=== PATIENT | male | born 1955 | race Caucasian/White ===

== ENCOUNTER → 2018-01-19 | Outpatient (CLI) | payer OTHER | END | disposition home or self-care (01) | LOC: RADXRMAIN 09:19 | PROVIDERS: ATTEND Podiatrist | DX: Z53.9 Procedure and treatment not carried out, unspecified reason (principal) ==

== ENCOUNTER 2018-06-28 09:41 | Day surgery (SDC) | payer BC, OTHER ==
[2018-06-25 16:03] VITALS: BMI 34.0
[~2018-06-28 09:41] MED LIST: LACTATED RINGERS 1,000 ML IV SCH; LIDOCAINE 1% 20 ML VIAL (10MG/ML) FOR IV START INTRADERMA PRN
[2018-06-28 10:05] VITALS: RESP 16; TEMP 96.9
[2018-06-28] MEDS ORDERED: PROPOFOL 10 MG/ML 20 ML VIAL IV ONE (10:09)
[2018-06-28] MEDS ORDERED: GLYCOPYRROLATE 0.2 MG/ML 2 ML VIAL ONE (10:09)
[2018-06-28] MEDS ORDERED: LIDOCAINE 1% INJ 10MG/ML (20 ML MDV) ONE (10:09)
[2018-06-28 10:34] VITALS: PULSE 70
--- NOTE | 2018-06-28 11:15 | P.PCN ---
Date of Procedure: 06/28/18 Procedure(s) Performed: Procedure: Total colonoscopy. Preoperative diagnosis: Rectal bleeding. Postoperative diagnosis: 1. Sigmoid diverticulosis with no evidence of acute diverticulitis or strictures. 2. Low-grade internal hemorrhoids not bleeding at the time of this exam. Preparation: HalfLytely prep. Sedation: Was provided by anesthesia. Brief clinical history: The patient is 63-year-old male who is scheduled for this evaluation because of intermittent rectal bleeding which he has been experiencing over the last 2 years or so, perhaps once or twice a month. He denied any bowel issues or rectal pain. His prior evaluation was in 2009. Procedure: With the patient on his left lateral decubitus position and after informed consent and adequate sedation, the perianal area was inspected and it did not show any fissures or fistulas. There were no masses felt on digital rectal examination. The Olympus CFH 190L video colonoscope was then inserted in the rectum in the usual fashion and advanced to the cecum. There were several diverticular orifices seen scattered in the sigmoid with no evidence of acute diverticulitis or strictures. The mucosa appeared healthy. No polyps or tumors were seen. I retroflexed the endoscope in the rectum before the endoscope was withdrawn. Low-grade internal hemorrhoids were noted with no evidence of bleeding. The patient tolerated the procedure well. Plan: The patient was reassured. Discussed dietary measures and local care for hemorrhoids. He will follow up with you as planned and I recommended repeat exam in 10 years.
[2018-06-28 11:16] VITALS: BP 115/83
== END 2018-06-28 11:41 | disposition home or self-care (01) ==
LOC: ORWHC2ENDO 09:41
DX: K57.30 Diverticulosis of large intestine without perforation or abscess without bleeding (principal); K64.8 Other hemorrhoids; K62.5 Hemorrhage of anus and rectum; Z87.891 Personal history of nicotine dependence; G89.29 Other chronic pain; M54.9 Dorsalgia, unspecified; Z79.1 Long term (current) use of non-steroidal anti-inflammatories (NSAID)
CPT/HCPCS: 45378; J2001; J2704

== ENCOUNTER 2018-12-27 12:08 | Emergency (ER) | payer BC ==
[2018-12-27 12:12] VITALS: TEMP 98.2
[2018-12-27] MEDS ORDERED: methylPREDNISolone SOD SUCCI 125 MG/2 ML VIAL IV STA (12:14)
[2018-12-27] MEDS ORDERED: diphenhydrAMINE 50 MG/ML 1 ML VIAL IVP STA (12:14)
[2018-12-27] MEDS ORDERED: FAMOTIDINE 20 MG/2 ML VIAL IV STA (12:14)
[2018-12-27 13:10] VITALS: BP 135/90; PULSE 70; RESP 18
--- NOTE | 2018-12-27 13:26 | ED ---
Allergic Reaction HPI - General Chief complaint: Allergic Reaction Stated complaint: allergic reaction Time Seen by Provider: 12/27/18 12:14 Source: patient Mode of arrival: ambulatory Limitations: no limitations - History of Present Illness Initial Comments: 63-year-old male presented for chief complaint of possible ALLERGIC reaction. Patient states that he has had hives on audible past 2 months. Patient states that the develop on his back first. Patient states that he developed hives mostly on his back to his legs by the morning. He states they're very itchy. Patient states they're slightly raised red and 8 irregular pattern. Patient states that he also developed lip swelling this morning and was concerned per patient states he felt a scratchy throat was concerned ALLERGIC reaction presents emergency department for further evaluation. Patient denies any new medications. Patient denies any new exposures. Patient denies any ALLERGIES to pollen. Patient denies any insect bites. Patient states he takes no medications he denies any use of Ethan inhibitors. Patient states that he takes occasional Advil. Patient denies any specific food ingestion such as peanuts or shortness. Patient denies any specific changes in diet. Patient states he is unsure the cause of this ALLERGIC reaction. Denies abdominal pain diarrhea. Remaining review of systems negative. - Related Data Home Medications Medication Instructions Recorded Confirmed Ibuprofen [Advil] 200 mg PO Q6HR PRN 06/25/18 06/28/18 Previous Rx's Medication Instructions Recorded predniSONE 40 mg PO DAILY 4 Days #8 tab 12/27/18 Allergies Allergy/AdvReac Type Severity Reaction Status Date / Time No Known Allergies Allergy Verified 12/27/18 12:11 Review of Systems ROS Statement: Those systems with pertinent positive or pertinent negative responses have been documented in the HPI. ROS Other: All systems not noted in ROS Statement are negative. Past Medical History Past Medical History: No Reported History Additional Past Medical History / Comment(s): CHRONIC BACK PAIN. History of Any Multi-Drug Resistant Organisms: None Reported Past Surgical History: Back Surgery Additional Past Surgical History / Comment(s): NECK SURGERY X2 Past Anesthesia/Blood Transfusion Reactions: No Reported Reaction Past Psychological History: No Psychological Hx Reported Smoking Status: Former smoker Past Alcohol Use History: None Reported Past Drug Use History: None Reported - Past Family History Mother Family Medical History: No Reported History General Exam - General Exam Comments Initial Comments: General: The patient is awake and alert, in no distress, and does not appear acutely ill. Eye: Pupils are equal, round and reactive to light, extra-ocular movements are intact. No nystagmus. There is normal conjunctiva bilaterally. No signs of icterus. Ears, nose, mouth and throat: There are moist mucous membranes and no oral lesions. Neck: The neck is supple, there is no tenderness or JVD. Cardiovascular: There is a regular rate and rhythm. No murmur, rub or gallop is appreciated. Respiratory: Lungs are clear to auscultation, respirations are non-labored, breath sounds are equal. No wheezes, stridor, rales, or rhonchi. Musculoskeletal: Normal ROM, no tenderness. Strength 5/5. Sensation intact. Pulses equal bilaterally 2+. Neurological: A&O x 3. CN II-XII intact, There are no obvious motor or sensory deficits. Coordination appears grossly intact. Speech is normal. Skin: Skin is warm and dry. Raised erythematous areas Tramaine on the lower extremity bilaterally as well as the low back. Circular. Blanchable. Patient has mild soft tissue swelling of the left aspect of the upper lip. No swelling of the tongue. No stridor tripoding or drooling noted. Normal oropharynx ex amination. Psychiatric: Cooperative, appropriate mood & affect, normal judgment. Limitations: no limitations Course Vital Signs 12/27/18 12/27/18 12/27/18 12:09 12:52 13:08 Temperature 98.2 F Pulse Rate 71 72 Respiratory 18 18 16 Rate Blood Pressure 142/97 138/102 O2 Sat by Pulse 98 99 Oximetry 12/27/18 12/27/18 13:10 14:11 Temperature 98.2 F Pulse Rate 70 70 Respiratory 18 18 Rate Blood Pressure 135/90 135/90 O2 Sat by Pulse 97 97 Oximetry Medical Decision Making - Medical Decision Making 63-year-old male presenting for hives. Patient is obvious urticaria on examination. Patient does have noted mild swelling of the left side of the upper lip. No other oral lesions lesions noted. Patient has no stridor tripoding or drooling. Patient does not appear in respiratory distress. Alan lozano is provided site ventral Pepcid Benadryl. Patient states he is no longer itching. He states that there is been no progression in the left upper lip swelling he states he feels like is reducing. Patient denies any scratchiness of his throat. Patient states that he has no compressive symptoms or difficulty swallowing. At this time feel patient is stable for discharge and discussed the case by attending provider. Patient prescribed a prescription for outpatient prednisone for the next 4 days and I instructed patient to follow his primary care provider encouraging patient to have ALLERGY testing. Osseo diet was discussed with patient as well as tracking his foods that he ingested. As with a pattern that the hives. Patient verbalized understanding of care plan is agreeable and prefers discharge at this time. Patient was discharged appearing well. Return parameters were discussed at length in in detail patient. Disposition Clinical Impression: Allergic reaction, Angioedema Disposition: HOME SELF-CARE Condition: Good Instructions (If sedation given, give patient instructions): Urticaria (ED), Anaphylaxis (ED) Additional Instructions: Please use medication as discussed. Please follow-up with family doctor in the next 2 days. Please return to emergency room if the symptoms increase or worsen or for any other concerns, swelling of the lip, tongue, sensation throat closing, diarrhea/vomiting. Prescriptions: predniSONE 40 mg PO DAILY 4 Days #8 tab Is patient prescribed a controlled substance at d/c from ED?: No Referrals: Antonino Spear DO [Primary Care Provider] - 1-2 days Time of Disposition: 13:55
== END 2018-12-27 14:13 | disposition home or self-care (01) ==
LOC: EC 12:08
DX: T78.3XXA Angioneurotic edema, initial encounter (principal); Z87.891 Personal history of nicotine dependence
CPT/HCPCS: 99283; 96374; 96375 ×2; J1200; J2930

== ENCOUNTER → 2022-05-20 | Outpatient (CLI) | payer MEDICARE ==
--- NOTE | 2022-05-20 17:39 | CT ---
EXAMINATION TYPE: CT abdomen pelvis w con DATE OF EXAM: 05/20/2022 COMPARISON: None HISTORY: 66-year-old male R19.09, OTHER INTRA-ABDOMINAL AND PELVIC SWELLING TECHNIQUE: Contiguous axial scanning of the abdomen and pelvis following administration of 70 ml Isov ue 300 IV contrast. Delayed images through the kidneys and coronal/sagittal reconstructions performe d. CT DLP: 1849 mGycm Automated exposure control for dose reduction was used. FINDINGS: Heart upper limits of normal in size without pericardial effusion. Strandy dependent atelec tasis in the lower lungs. No pleural effusion. Small hiatal hernia noted. Liver mildly enlarged at 18.1 cm with diffuse low-attenuation. A few scattered hepatic hypodensities are present measuring up to 1.2 cm, likely benign cysts. Gallbladder borderline hydropic at 3.8 cm wide. No surrounding inflammation. Portal venous system is patent. Adrenal glands, spleen, pancreas within normal limits. In the right kidney, there are 4 nonobstructive calcifications measuring up to 4 mm. In the left kidney, there are 3 nonobstructive calculi measuring up to 5 mm. Both kidneys show numerous hypodense lesions, largest measuring 2.0 cm, all likely small cysts. One of these at the anterior left upper pole measuring 2.1 cm may be mildly complex with internal sep tation and should be reassessed at follow-up in 6 months, delayed kidney axial image 29. Circumaortic left renal vein. Moderate prostatic calcifications infrarenal abdominal aorta and common iliac arteries. No dilated small bowel, free fluid, or free air. No mesenteric or retroperitoneal lymphadenopathy. Normal appendix. Oral contrast progressed to the rectum. No significant stool burden. There is left-s ided colonic diverticulosis. No pericolonic inflammatory change. Bladder partially distended. Mild circumferential wall thickening. Prostate gland 4.5 cm wide but wit h median lobe hypertrophy impressing into the base of the bladder. No abnormal fluid collection in th e pelvis or pelvic lymphadenopathy. There is a moderate-sized direct right inguinal hernia containing fat and measuring 7.4 x 4.3 x 3.8 c m (refer to sagittal image 39 and axial image 79). Bones: Mild degenerative change in both hips. Degenerative changes left greater than right SI joints. Lumbar spine shows previous L3-S1 posterior fusion. There is also interbody ankylosis up to the L2 l evel with focal kyphotic deformity and fusion of the posterior elements up to the L2 and possibly the L1 level. Advanced hypertrophic facet arthropathy lower thoracic spine with at least moderate degene rative disc disease. IMPRESSION: 1. MILD HEPATOMEGALY AT 18.1 CM WITH MODERATE TO SEVERE HEPATIC STEATOSIS. A FEW SMALL HYPODENSE LIVE R LESIONS MEASURING UP TO 1.2 CM LIKELY REPRESENT BENIGN CYSTS. REASSESS AT A 6 MONTH FOLLOW-UP. 2. NUMEROUS HYPODENSE RENAL LESIONS MOSTLY MEASURING UP TO 2.0 CM. THE LARGEST AT 2.1 CM LEFT UPPER P OLE MAY BE MILDLY COMPLEX WITH SEPTATION. QUERY ANY UNDERLYING KNOWN DIAGNOSIS SUCH POLYCYSTIC KID LYDIA DISEASE. REASSESS AT A 6 MONTH FOLLOW-UP. 3. BILATERAL NONOBSTRUCTIVE RENAL CALCULI MEASURING UP TO 5 MM. 4. SMALL HIATAL HERNIA. LEFT-SIDED COLONIC DIVERTICULOSIS WITHOUT ACUTE DIVERTICULITIS. 5. MEDIAN LOBE HYPERTROPHY OF THE PROSTATE GLAND IMPRESSING INTO THE BASE OF THE BLADDER. CORRELATE W ITH PATIENT'S SYMPTOMS AND PSA VALUES FOR POTENTIAL BPH. 6. MODERATE SIZED FAT-CONTAINING DIRECT RIGHT INGUINAL HERNIA. CORRELATE FOR ANY LOCAL SYMPTOMS. 7. DEGENERATIVE AND POSTSURGICAL FUSION OF THE LUMBAR SPINE WITH ASSOCIATED KYPHOTIC DEFORMITY ABO VE.
== END | disposition home or self-care (01) ==
LOC: RADCTMAIN 13:33
PROVIDERS: ATTEND Family Medicine
DX: K76.0 Fatty (change of) liver, not elsewhere classified (principal); N20.0 Calculus of kidney; K44.9 Diaphragmatic hernia without obstruction or gangrene; K57.30 Diverticulosis of large intestine without perforation or abscess without bleeding; N40.0 Benign prostatic hyperplasia without lower urinary tract symptoms; K40.90 Unilateral inguinal hernia, without obstruction or gangrene, not specified as recurrent; M51.36 Other intervertebral disc degeneration, lumbar region; N28.89 Other specified disorders of kidney and ureter; M47.816 Spondylosis without myelopathy or radiculopathy, lumbar region; Z98.890 Other specified postprocedural states
CPT/HCPCS: 74177; Q9967 ×2

== ENCOUNTER → 2022-07-25 | Outpatient (CLI) | payer MEDICARE ==
--- NOTE | 2022-07-25 08:21 | US ---
EXAMINATION TYPE: US gallbladder DATE OF EXAM: 07/25/2022 COMPARISON: CT 2022, Renal US 2014 CLINICAL HISTORY: R10.11 RIGHT UPPER QUADRANT PAIN. RUQ pain. Hx kidney stones, enlarged liver. TECHNIQUE: Multiple sonographic images of the right upper quadrant are obtained. 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 Pancreas: Not well seen. Liver:Increased echogenicity and attenuation. Appears very coarse. Measures upper limits, but measu rement was limited. Complex areas seen within the liver. Largest complex area in left lobe measures: 2.1 x 1.8 x 1.6 cm. Complex area seen right lobe: 1.4 x 1.4 x 1.1 cm. Gallbladder: Measures 9.3 cm in length and 3.5 cm in width. Evidence for sonographic Porter's sign: Patient did jump with probe pressure over the gallbladder a fernando. CBD: Obscured Right Kidney: Hyperechoic focus seen: 0.4 x 0.4 x 0.4 cm. IMPRESSION: 1. Hepatic steatosis with borderline hepatomegaly. 2. Hepatic cysts as noted on recent CT.
== END | disposition home or self-care (01) ==
LOC: RADUSWWP 07:10
PROVIDERS: ATTEND Surgery Plastic and Reconstructive Surgery
DX: K76.0 Fatty (change of) liver, not elsewhere classified (principal); K76.89 Other specified diseases of liver; Z87.442 Personal history of urinary calculi
CPT/HCPCS: 76705

== ENCOUNTER → 2022-07-27 | Outpatient (CLI) | payer MEDICARE ==
--- NOTE | 2022-07-27 11:26 | NM ---
Nuclear medicine hepatobiliary scan. HISTORY: Pain. Comparison: Ultrasound 07/25/2022 DOSAGE: The patient received 8 0z Ensure plus and 5.0 mCi of Technetium 99m Choletec. FINDINGS: There is normal hepatic extraction. The gallbladder is seen by 20 minutes. There is bilia ry to bowel clearance by 20 minutes. Ejection fraction is 95%. IMPRESSION: 1. No evidence of cholecystitis. 2. Ejection fraction 95%. This can occasionally be associated with hyperdynamic gallbladder correlate clinically.
== END | disposition home or self-care (01) ==
LOC: RADNMMAIN 07:22
PROVIDERS: ATTEND Surgery Plastic and Reconstructive Surgery
DX: Z01.89 Encounter for other specified special examinations (principal); R10.11 Right upper quadrant pain
CPT/HCPCS: 78227; A9537; J2805

== ENCOUNTER 2022-09-28 07:55 | Day surgery (SDC) | payer MEDICARE ==
[~2022-09-28 07:55] MED LIST changes: +LIDOCAINE 1% (10MG/ML) FOR IV START INTRADERMA PRN; -LIDOCAINE 1% 20 ML VIAL (10MG/ML) FOR IV START INTRADERMA PRN
[2022-09-28 08:34] VITALS: TEMP 97.9
[2022-09-28] MEDS ORDERED: FAMOTIDINE 20 MG/2 ML VIAL IV ONE (08:52)
--- NOTE | 2022-09-28 09:48 | P.GSHP ---
History of Present Illness H&P Date: 09/28/22 CHIEF COMPLAINT: GERD and colon screen HISTORY OF PRESENT ILLNESS: The patient is a 67-year-old male who presents with gastroesophageal reflux disease and need for colon screen. Upper and lower endoscopy were offered for further evaluation and management. PAST MEDICAL HISTORY: Please see list. PAST SURGICAL HISTORY: Please see list. MEDICATIONS: Please see list. ALLERGIES: Please see list. SOCIAL HISTORY: No illicit drug use FAMILY HISTORY: No reports of Crohn disease or ulcerative colitis. REVIEW OF ORGAN SYSTEMS: CONSTITUTIONAL: No reports of fevers or chills. GI: Denies any blood in stools or constipation. PHYSICAL EXAM: VITAL SIGNS: Stable GENERAL: Well-developed pleasant in no acute distress. HEENT: No scleral icterus. Extraocular movements grossly intact. Moist buccal mucosa. NECK: Supple without lymphadenopathy. CHEST: Unlabored respirations. Equal bilateral excursions. CARDIOVASCULAR: Regular rate and rhythm. Distal 2+ pulses. ABDOMEN: Soft, nondistended. MUSCULOSKELETAL: No clubbing, cyanosis, or edema. ASSESSMENT: 1. Gastroesophageal reflux disease 2. Colon screen. PLAN: 1. Recommend proceeding with an upper and lower endoscopy Past Medical History Past Medical History: No Reported History Additional Past Medical History / Comment(s): CHRONIC BACK PAIN. History of Any Multi-Drug Resistant Organisms: None Reported Past Surgical History: Back Surgery Additional Past Surgical History / Comment(s): NECK SURGERY X2 Past Anesthesia/Blood Transfusion Reactions: No Reported Reaction Additional Past Anesthesia/Blood Transfusion Reaction / Comment(s): slow to wake Past Psychological History: No Psychological Hx Reported Smoking Status: Former smoker Past Alcohol Use History: Occasional Additional Past Alcohol Use History / Comment(s): QUIT SMOKING IN HIS 30'S. SMOKED ON & OFF FOR 10 YEARS. SMOKED 1-2 CIGARETTES PER DAY. Past Drug Use History: None Reported - Past Family History Mother Family Medical History: No Reported History Medications and Allergies Home Medications Medication Instructions Recorded Confirmed Type Ibuprofen [Advil] 200 mg PO Q6HR PRN 06/25/18 09/28/22 History Allergies Allergy/AdvReac Type Severity Reaction Status Date / Time No Known Allergies Allergy Verified 09/27/22 11:35 Surgical - Exam Vital Signs Temp Pulse Resp BP Pulse Ox 97.9 F 77 20 124/77 97 09/28/22 08:31 09/28/22 08:31 09/28/22 08:31 09/28/22 08:31 09/28/22 08:31
[2022-09-28] MEDS ORDERED: LIDOCAINE 2% INJ 20 MG/ML (2 ML VIAL) ONE (09:51)
[2022-09-28] MEDS ORDERED: PROPOFOL 10 MG/ML 20 ML VIAL IV ONE (09:51)
[2022-09-28] MEDS ORDERED: PHENYLEPHRINE-0.9% NACL SYG 1,000 MCG/10 ML SYRINGE ONE (09:51)
--- NOTE | 2022-09-28 10:11 | P.PCN ---
Date of Procedure: 09/28/22 Description of Procedure: PREOPERATIVE DIAGNOSIS: Gastroesophageal reflux disease. Morbid obesity. Epigastric abdominal pain Right upper quadrant abdominal pain POSTOPERATIVE DIAGNOSIS: Gastroesophageal reflux disease with erosive esophagitis and ulcer Diaphragmatic hiatal hernia, sliding type Acute gastric ulcers with bleeding Chronic gastritis Duodenal ulcer Pyloric stenosis Gastric outlet obstruction, mild OPERATION: Esophagogastroduodenoscopy with biopsies along antrum, duodenum, GE junction/eso phagus SURGEON: Joanne Pedraza MD ANESTHESIA: MAC. INDICATIONS: The patient is a 67-year-old female who presents with reflux disease and abdominal pain. Benefits and risks of the procedure were described. Informed consent was obtained. DESCRIPTION: The patient was brought into the endoscopy suite and laid in the left lateral decubitus position. An Olympus gastroscope was passed along the posterior oropharynx down to the distal esophagus where the squamocolumnar junction was encountered at 40 cm from the incisors. The stomach was entered and no bile reflux was found. Additional findings are listed below. Biopsies with cold forceps were obtained of the antrum. The first through third portion of the duodenum was examined. Retroflexion of the scope confirmed Hill grade 3 lower esophageal valve. The squamocolumnar junction demonstrated LA grade B erosive esophagitis. The stomach was desufflated. The patient tolerated the procedure well. FINDINGS: Squamocolumnar junction 40 cm from the incisors. Diaphragmatic hiatus at 41 cm. Hiatal hernia, 1 cm Hill grade 3 lower esophageal valve. LA grade B erosive esophagitis with biopsies obtained of GE junction Acute duodenitis with duodenal ulcer, 3 mm, first portion Chronic gastritis with recent bleed Acute gastric ulcers, proximal stomach/cardia, 3-4 mm 2 with recent bleeding Pyloric stenosis due to inflammation of the pylorus RECOMMENDATIONS: Carafate 1 g twice a day for 1 month Omeprazole 40 mg daily for 1 month Repeat upper endoscopy 4-6 weeks
[2022-09-28 10:26] VITALS: RESP 16
--- NOTE | 2022-09-28 10:29 | P.PCN ---
Date of Procedure: 09/28/22 Description of Procedure: PREOPERATIVE DIAGNOSIS: Colonoscopy screening. POSTOPERATIVE DIAGNOSIS: Colonoscopy screening. Diverticulosis, scattered. OPERATION: Colonoscopy to the cecum, ileocecal valve and appendiceal orifice. SURGEON: Joanne Pedraza MD. ANESTHESIA: MAC. INDICATIONS: The patient is [id number] male who presents for colonoscopy screening. Benefits and risks were described and informed consent was obtained. DESCRIPTION OF PROCEDURE: The patient had undergone Sutab prep. The patient had been brought into the operating room and laid in the left lateral decubitus position. After adequate intravenous sedation, the rectum was examined with 2% lidocaine jelly. No external hemorrhoids were encountered. The rectal tone was within normal limits. No lesions were palpated in the rectal vault. An Olympus colonoscope was advanced until the cecum, ileocecal valve and appendiceal orifice were clearly viewed. The prep was fair. Scattered diverticulosis was encountered. No colonic polyps were found. No evidence of focal colitis was found. Retroflexion of the scope demonstrated grade 2 internal hemorrhoids without active bleeding or inflammation. The colon was desufflated. The patient had tolerated the procedure well. Withdrawal time was over 6 minutes. FINDINGS: Aronchick preparation quality scale 3 (1-5) Internal hemorrhoids, grade 2 No external prolapsed hemorrhoids. No arteriovenous malformations. No large adenomatous polyps. Moderate sigmoid diverticulosis No focal colitis. RECOMMENDATIONS: Lower endoscopy in 5 years2027 Plan - Discharge Summary Discharge Rx Participant: No New Discharge Prescriptions: New Sucralfate [Carafate] 1 gm PO BID #60 tablet Omeprazole [PriLOSEC] 40 mg PO DAILY #30 cap Discontinued Ibuprofen [Advil] 200 mg PO Q6HR PRN PRN Reason: Pain Discharge Medication List Omeprazole [PriLOSEC] 40 mg PO DAILY #30 cap 09/28/22 [Rx] Sucralfate [Carafate] 1 gm PO BID #60 tablet 09/28/22 [Rx] Follow up Appointment(s)/Referral(s): Joanne Pedraza MD [STAFF PHYSICIAN] - 10/25/22 4:00 pm Patient Instructions/Handouts: Diverticulosis Diet (GEN), Diverticulosis (GEN), GERD (Gastroesophageal Reflux Disease) (DC) Activity/Diet/Wound Care/Special Instructions: Repeat colonoscopy 5 years, 2027 Discharge Disposition: HOME SELF-CARE
--- NOTE | 2022-09-28 10:45 | P.PN ---
Progress Note - Text Progress Note Date: 09/28/22 Results of upper and lower endoscopy were reviewed. Patient describes severe atypical chest pain including radiation to the back. Additionally, patient reports worsening symptomatic right inguinal hernia. EKG reviewed and unremarkable for acute findings. We'll proceed with robotic right inguinal hernia repair.
[2022-09-28 11:11] LABS: Basophils % (A) 0 %; Eosinophils # (A) 0.1 k/uL (0-0.7); Eosinophils % (A) 2 %; HCT 44.6 % (39.0-53.0); HGB 14.7 gm/dL (13.0-17.5); Lymphocytes # (A) 1.1 k/uL (1.0-4.8); Lymphocytes % (A) 19 %; MCHC 32.9 g/dL (31.0-37.0); MCV 97.4 fL (80.0-100.0); Monocytes # (A) 0.4 k/uL (0-1.0); Monocytes % (A) 7 %; Neutrophils % (A) 71 %; Platelet Count 225 k/uL (150-450); RBC 4.58 m/uL (4.30-5.90); RDW 13.3 % (11.5-15.5); WBC 5.7 k/uL (3.8-10.6)
[2022-09-28 11:17] VITALS: BP 127/85; PULSE 61
[2022-09-28 11:30] LABS: ALT 38 U/L (4-49); AST 33 U/L (17-59); African American GFR (CKD) >90 (>60 ml/min/1.73 sqM); Albumin 3.6 g/dL (3.5-5.0); Alkaline Phosphatase 86 U/L (38-126); Anion Gap 9 mmol/L; Blood Urea Nitrogen 17 mg/dL (9-20); Calcium 9.1 mg/dL (8.4-10.2); Carbon Dioxide 19 mmol/L (22-30); Chloride 109 mmol/L (98-107); Glucose 99 mg/dL (74-99); Non-African American GFR(CKD) 78 (>60 ml/min/1.73 sqM); Potassium 4.3 mmol/L (3.5-5.1); Sodium 137 mmol/L (137-145); Total Bilirubin 0.7 mg/dL (0.2-1.3); Total Protein 6.6 g/dL (6.3-8.2)
== END 2022-09-28 11:20 | disposition home or self-care (01) ==
LOC: ORWHC2ENDO 07:55
PROVIDERS: ATTEND Surgery Plastic and Reconstructive Surgery
DX: Z12.11 Encounter for screening for malignant neoplasm of colon (principal); K57.30 Diverticulosis of large intestine without perforation or abscess without bleeding; K22.10 Ulcer of esophagus without bleeding; K21.9 Gastro-esophageal reflux disease without esophagitis; K64.1 Second degree hemorrhoids; G89.29 Other chronic pain; K29.50 Unspecified chronic gastritis without bleeding; K26.9 Duodenal ulcer, unspecified as acute or chronic, without hemorrhage or perforation; K31.1 Adult hypertrophic pyloric stenosis; K25.4 Chronic or unspecified gastric ulcer with hemorrhage; K44.9 Diaphragmatic hernia without obstruction or gangrene; E66.01 Morbid (severe) obesity due to excess calories; Z98.890 Other specified postprocedural states; Z87.891 Personal history of nicotine dependence; Z86.59 Personal history of other mental and behavioral disorders
CPT/HCPCS: 88305; 80053; 85025; 43239; G0121; J2370; J2704; J2001; 45378

== ENCOUNTER 2022-10-28 07:56 | Day surgery (SDC) | payer MEDICARE ==
[2022-10-25 11:28] VITALS: BMI 34.4
--- NOTE | 2022-10-28 06:52 | P.GSHP ---
History of Present Illness H&P Date: 10/28/22 CHIEF COMPLAINT: Inguinal hernia, right. HISTORY OF PRESENT ILLNESS: The patient is a 67-year-old male who presents with a history of swelling and pain along the right groin. He has noted increased swelling including pain of the area. Now he presents for repair of his inguinal hernia. PAST MEDICAL HISTORY: Please see list. PAST SURGICAL HISTORY: Please see list. MEDICATIONS: Please see list. ALLERGIES: Please see list. SOCIAL HISTORY: No illicit drug use FAMILY HISTORY: No reports of Crohn disease or ulcerative colitis. REVIEW OF ORGAN SYSTEMS: CONSTITUTIONAL: No reports of fevers or chills. No reports of weight loss despite prior attempts. GI: Denies any blood in stools or constipation. PHYSICAL EXAM: VITAL SIGNS: Stable GENERAL: Well-developed pleasant in no acute distress. HEENT: No scleral icterus. Extraocular movements grossly intact. Moist buccal mucosa. NECK: Supple without lymphadenopathy. CHEST: Unlabored respirations. Equal bilateral excursions. CARDIOVASCULAR: Regular rate and rhythm. Distal 2+ pulses. ABDOMEN: Soft, nondistended. No peritoneal signs. Moderate tenderness right lower quadrant MUSCULOSKELETAL: No clubbing, cyanosis, or edema. ASSESSMENT: 1. Inguinal hernia, right initial and symptomatic. PLAN: 1. Recommend proceeding robotic inguinal repair with mesh with possible bilateral approach. 2. Benefits and risks of surgical intervention was discussed including possibility of open technique. 3. DVT prophylaxis. 4. Antibiotic prophylaxis. 5. Non narcotic pain management including abdominal wall block described 6. Blood sugar glucose described. 7. Weight loss management described. Past Medical History Past Medical History: No Reported History Additional Past Medical History / Comment(s): CHRONIC BACK PAIN. History of Any Multi-Drug Resistant Organisms: None Reported Past Surgical History: Back Surgery Additional Past Surgical History / Comment(s): NECK SURGERY X2 Past Anesthesia/Blood Transfusion Reactions: No Reported Reaction Additional Past Anesthesia/Blood Transfusion Reaction / Comment(s): slow to wake Smoking Status: Former smoker - Past Family History Mother Family Medical History: No Reported History Medications and Allergies Home Medications Medication Instructions Recorded Confirmed Type Sucralfate [Carafate] 1 gm PO BID #60 tablet 09/28/22 10/25/22 Rx Omeprazole [PriLOSEC] 40 mg PO QAM 10/25/22 10/25/22 History Allergies Allergy/AdvReac Type Severity Reaction Status Date / Time No Known Allergies Allergy Verified 10/25/22 11:05
[~2022-10-28 07:56] MED LIST changes: +ACETAMINOPHEN TAB 500 MG TAB PO PRN; +HEPARIN SODIUM,PORCINE/PF 5,000 UNIT/0.5 ML SYRINGE SQ PRN; -LACTATED RINGERS 1,000 ML IV SCH; -LIDOCAINE 1% (10MG/ML) FOR IV START INTRADERMA PRN; +ONDANSETRON 4 MG/2 ML VIAL IVP PRN
[2022-10-28] MEDS ORDERED: MIDAZOLAM 2 MG/2 ML VIAL IV PRN (08:11)
[2022-10-28] MEDS ORDERED: LACTATED RINGERS 1,000 ML IV SCH (08:11)
[2022-10-28] MEDS ORDERED: HYDROmorphone 0.5 MG/0.5 ML SYRINGE IVP PRN (08:11)
[2022-10-28] MEDS ORDERED: DEXAMETHASONE SOD PHOSPHATE 4 MG/ML 1 ML VIAL IVP ONE (08:40)
[2022-10-28] MEDS ORDERED: fentaNYL (PF) 50 MCG/ML 2 ML AMP IVP ONE (08:47)
[2022-10-28] MEDS ORDERED: SUCCINYLCHOLINE CHLORIDE 200 MG/10 ML VIAL IV ONE (09:06)
[2022-10-28] MEDS ORDERED: fentaNYL (PF) 50 MCG/ML 2 ML AMP ONE (09:06)
[2022-10-28] MEDS ORDERED: PROPOFOL 10 MG/ML 20 ML VIAL IV ONE (09:06)
[2022-10-28] MEDS ORDERED: GLYCOPYRROLATE 0.2 MG/ML 2 ML VIAL ONE (09:06)
[2022-10-28] MEDS ORDERED: LIDOCAINE 2% INJ 20 MG/ML (2 ML VIAL) ONE (09:06)
[2022-10-28] MEDS ORDERED: ROCURONIUM 10 MG/ML (5 ML VIAL) IV ONE (09:06)
[2022-10-28] MEDS ORDERED: NEOSTIGMINE 1 MG/ML 10 ML VIAL ONE (09:06)
[2022-10-28] MEDS ORDERED: BUPIVACAINE (PF) 0.25% 30 ML VIAL SQ ONE (09:42)
[2022-10-28 11:26] VITALS: TEMP 96.8
[2022-10-28 12:31] VITALS: RESP 18
--- NOTE | 2022-10-28 13:24 | P.OP ---
Date of Procedure: 10/28/22 Description of Procedure: SURGEON: JOANNE PEDRAZA MD PREOPERATIVE DIAGNOSES: 1. Initial right inguinal hernia 2. Gastric ulcers 3. Obesity due to excess calories, BMI 33.7 POSTOPERATIVE DIAGNOSES: 1. Initial bilateral inguinal hernia 2. Incarcerated right inguinal hernia, direct, 4 x 3 cm 3. Pelvic adhesions, left 4. Obesity due to excess calories, BMI 33.7 OPERATION: 1. Robotic-assisted da Denny Xi laparoscopic repair of initial incarcerated right direct inguinal hernia with mesh, 11.[address] 2. Robotic-assisted da Denny Xi laparoscopic repair of initial reducible left direct inguinal hernia with mesh, 11.[address] 3. Resection of incarcerated subfascial right inguinal lipoma, 7 x 5 cm ANESTHESIA: General with local anesthetic ESTIMATED BLOOD LOSS: 5 mL. SPECIMENS: 1. Right inguinal lipoma and hernia sac COMPLICATIONS: None. FINDINGS: 1. Indirect left inguinal hernia defect, 2 cm, Nyhus type I 2. Direct right inguinal hernia defect, 4 x 3 cm cm, initial Nyhus type II 3. Large incarcerated right inguinal lipoma, 7 x 5 cm subfascial INDICATIONS: The patient is a 67-year-old gentleman who presents with symptomatic right inguinal hernia. Now presents for definitive surgical intervention. Laparoscopic versus open and robotic approaches were discussed. Benefits and risks including bleeding, infection, injury to the vas deferens as well as sterility and chronic groin pain were reviewed. Placement of mesh was also described. Informed consent was obtained. DESCRIPTION: In the preoperative area, the patient was marked with indelible marker along the inguinal hernia. The patient was brought to the operating room and initially laid in supine position. The abdomen had been prepped and draped in standard sterile fashion. Ioban draping was also placed. Prior to incision, a timeout protocol was confirmed with surgical team regarding patient's name including procedures to be performed and location along the right groin. Initial positioning for the robotic assisted ports were selected whereby 15 cm superior to the target anatomy, 0 degree 5 mm laparoscopic trocar entry was performed at the left upper quadrant. The abdomen was insufflated to 15 mmHg which he had tolerated well. Diagnostic laparoscopy demonstrated no injury to bowel, viscera or mesentery. A large defect along the right groin was found. Next, along the epigastrium, 8 mm robot trocar was placed. An 8-mm robotic trocar was placed under direct visualization at the right upper quadrant. An 8 mm port was placed at the left upper quadrant. All trocars were positioned between 10-cm apart from each other. An accessory trocar 12 mm placed along the right upper abdominal wall, lateral. The [email or web address] robot was primed, draped, prepared for docking along upper abdomen of the patient. The patient was positioned 21 steep Trend elenburg position I then went to the [email or web address] Xi console. The showroom sales assistant was at bedside for exchange of the robot arms and equipment. The right indirect inguinal hernia sac was evaginated whereby the peritoneum was scored using Endo scissors with cautery. Once completely reduced into the abdominal cavity, the peritoneal sac of the hernia was stripped. The sac was resected and then passed off for further pathological analysis using vessel saline. The size of the hernia defect was 4 x 3 cm with intraoperative films obtained. An incarceratedinguinal lipoma, subfascial 7 x 5 cm was resected. Using a nonabsorbable 2-0 VLOC, the peritoneal defect including fascial defect of the right inguinal hernia sites was closed using a pursestring suture separately. The defect was found to be completely closed with complete reduction of the right direct inguinal hernia were confirmed. As an onlay, an 11.[address] mesh by Bard was initially cut in half and entered into the abdominal cavity via the 8 mm trocar. The mesh was tacked to the pelvis using nonabsorbable 2-0 VLOC sutures. Next, careful attention along the left groin demonstrated a smaller inguinal hernia, indirect. Adhesions were dissected using scissors of the pelvis. The size of the hernia defect was 2 cm with intraoperative films obtained. As an onlay, an 11.[address] mesh by Bard was initially cut in half and entered into the abdominal cavity via the 8 mm trocar. The mesh was tacked to the pelvis using nonabsorbable 2-0 VLOC 9-inch length sutures. The robot was undocked from the patient's bedside. I then rescrubbed into the case. Insufflation was released from the abdominal cavity and all instruments were removed from the abdominal cavity. The rest of incisions were reapproximated using 4-0 Monocryl in a running subcuticular fashion. Incisions were cleansed using dilute hydrogen peroxide. Liquid glue was applied to the skin. At the end of the procedure, the needle, sponge and instrument counts had been verified correct by the ophthalmic surgical assistant. The patient had tolerated the procedure well and was taken to the postanesthesia care unit in stable condition. Plan - Discharge Summary Discharge Rx Participant: No New Discharge Prescriptions: New Simethicone [Gas-X] 125 mg PO AC-TID PRN #20 capsule PRN Reason: Pain Acetaminophen Tab [Tylenol Tab] 1,000 mg PO Q6HR PRN #30 tablet PRN Reason: Pain Continue Sucralfate [Carafate] 1 gm PO BID #60 tablet Omeprazole [PriLOSEC] 40 mg PO QAM Discharge Medication List Sucralfate [Carafate] 1 gm PO BID #60 tablet 09/28/22 [Rx] Omeprazole [PriLOSEC] 40 mg PO QAM 10/25/22 [History] Acetaminophen Tab [Tylenol Tab] 1,000 mg PO Q6HR PRN #30 tablet 10/28/22 [Rx] Simethicone [Gas-X] 125 mg PO AC-TID PRN #20 capsule 10/28/22 [Rx] Follow up Appointment(s)/Referral(s): Joanne Pedraza MD [STAFF PHYSICIAN] - 11/02/22 (TELEHEALTH ONLY 8 am to 8 pm) Patient Instructions/Handouts: Laparoscopic Herniorrhaphy (IP), *[facility]gery [facility] - Managing Your Pain After Surgery Without Opioids Activity/Diet/Wound Care/Special Instructions: TELEHEALTH - DR WILL CALL YOU BETWEEN 8 am to 8 pm No lifting over 10 pounds in 2 weeks until November 11. August shower. No bath tub soaks for two weeks until November 11.. Diet as tolerated. Use Tylenol, simethicone and ibuprofen or Aleve scheduled for the next 24-48 ingrid rs for best pain relief. Use ice along incisions for today to prevent swelling. Discharge Disposition: HOME SELF-CARE
[2022-10-28 15:58] VITALS: BP 144/84; PULSE 73
== END 2022-10-28 16:08 | disposition home or self-care (01) ==
LOC: OR 07:56
PROVIDERS: ATTEND Surgery Plastic and Reconstructive Surgery
DX: K40.30 Unilateral inguinal hernia, with obstruction, without gangrene, not specified as recurrent (principal); K40.90 Unilateral inguinal hernia, without obstruction or gangrene, not specified as recurrent; K25.9 Gastric ulcer, unspecified as acute or chronic, without hemorrhage or perforation; E66.9 Obesity, unspecified; Z68.33 Body mass index [BMI] 33.0-33.9, adult; K66.0 Peritoneal adhesions (postprocedural) (postinfection); Z87.891 Personal history of nicotine dependence; Z79.899 Other long term (current) drug therapy
CPT/HCPCS: 49650; S2900; 88304

== ENCOUNTER 2022-12-28 06:56 | Emergency (ER) | payer MEDICARE ==
[2022-12-28 07:24] VITALS: RESP 18; TEMP 98.2
[2022-12-28] MEDS ORDERED: KETOROLAC 15 MG/ML 1 ML VIAL IM STA (07:28)
--- NOTE | 2022-12-28 07:36 | ED ---
General Adult HPI - General Chief complaint: Abdominal Pain Stated complaint: Kidney Pain Time Seen by Provider: 12/28/22 07:22 Source: patient, RN notes reviewed, old records reviewed Mode of arrival: ambulatory Limitations: no limitations - History of Present Illness Initial comments: 67-year-old male presenting for evaluation of right flank pain. This is been a chronic issue over the past several months. He states over the past one month since worsened and become more consistent. He describes it as a sharp pain. No dysuria or hematuria. No fever. No vomiting. He does have history of kidney stone and presents to the emergency department with order for outpatient CT of the abdomen and pelvis without contrast. - Related Data Home Medications Medication Instructions Recorded Confirmed Omeprazole [PriLOSEC] 40 mg PO QAM 10/25/22 10/28/22 Previous Rx's Medication Instructions Recorded Sucralfate [Carafate] 1 gm PO BID #60 tablet 09/28/22 Acetaminophen Tab [Tylenol Tab] 1,000 mg PO Q6HR PRN #30 tablet 10/28/22 Simethicone [Gas-X] 125 mg PO AC-TID PRN #20 capsule 10/28/22 Allergies Allergy/AdvReac Type Severity Reaction Status Date / Time No Known Allergies Allergy Verified 12/28/22 07:24 Review of Systems ROS Statement: Those systems with pertinent positive or pertinent negative responses have been documented in the HPI. ROS Other: All systems not noted in ROS Statement are negative. Past Medical History Past Medical History: No Reported History Additional Past Medical History / Comment(s): CHRONIC BACK PAIN. kidney stone History of Any Multi-Drug Resistant Organisms: None Reported Past Surgical History: Back Surgery Additional Past Surgical History / Comment(s): NECK SURGERY X2 Past Anesthesia/Blood Transfusion Reactions: No Reported Reaction Additional Past Anesthesia/Blood Transfusion Reaction / Comment(s): slow to wake Past Psychological History: No Psychological Hx Reported Smoking Status: Former smoker Past Alcohol Use History: Unable to Obtain Past Drug Use History: Unable to Obtain - Past Family History Mother Family Medical History: No Reported History General Exam Limitations: no limitations General appearance: alert, in no apparent distress Head exam: Present: atraumatic, normocephalic Eye exam: Present: normal appearance, PERRL Neck exam: Present: normal inspection. Absent: tenderness, meningismus Respiratory exam: Present: normal lung sounds bilaterally. Absent: respiratory distress, wheezes Cardiovascular Exam: Present: regular rate, normal rhythm GI/Abdominal exam: Present: soft. Absent: distended, tenderness, guarding, rebound Extremities exam: Present: normal inspection Back exam: Present: CVA tenderness (R) Neurological exam: Present: alert, oriented X3 Psychiatric exam: Present: normal affect, normal mood Skin exam: Present: warm, dry, intact, diaphoretic Course Vital Signs 12/28/22 07:22 Temperature 98.2 F Pulse Rate 87 Respiratory 18 Rate Blood Pressure 144/94 O2 Sat by Pulse 99 Oximetry Medical Decision Making - Medical Decision Making Was pt. sent in by a medical professional or institution (, PA, MASSAGE COORDINATOR, urgent care, hospital, or group home...) When possible be specific @Sent in by general surgeon for CT of the abdomen and pelvis, with concern for kidney stone Did you speak to anyone other than the patient for history (EMS, parent, family, police, friend...)? What history was obtained from this source @ -No Did you review nursing and triage notes (agree or disagree)? Why? @ -I reviewed and agree with nursing and triage notes Were old charts reviewed (outside hosp., previous admission, EMS record, old EKG, old radiological studies, urgent care reports/EKG's, group home records)? Report findings @ -No old charts were reviewed Differential Diagnosis (chest pain, altered mental status, abdominal pain women, abdominal pain men, vaginal bleeding, weakness, fever, dyspnea, syncope, headache, dizziness, GI bleed, back pain, seizure, CVA, palpatations, mental health, musculoskeletal)? @ -Differential Abdominal Pain Men: Appendicitis, cholecystitis, diverticulosis, ischemic bowel, pancreatitis, hepatitis, UTI, gastroenteritis, AAA, incarcerated hernia, bowel obstruction, co nstipation, inflammatory bowel, hepatitis, peptic ulcer disease, splenic infarction, perforated viscus, testicular torsion, this is not meant to be an all-inclusive list EKG interpreted by me (3pts min.). @ -As above X-rays interpreted by me (1pt min.). @ -None done CT interpreted by me (1pt min.). @ -Multiple nonobstructing kidney stones on CT, no acute findings. U/S interpreted by me (1pt. min.). @ -None done What testing was considered but not performed or refused? (CT, X-rays, U/S, labs)? Why? @ -None What meds were considered but not given or refused? Why? @ -None Did you discuss the management of the patient with other professionals (professionals i.e. , PA, MASSAGE COORDINATOR, lab, RT, psych nurse, social group worker, brass and wind instrument repairer, teacher, bsa officer, case management social worker)? Give summary @ -No Was smoking cessation discussed for >3mins.? @ -No Was critical care preformed (if so, how long)? @ -No Were there social determinants of health that impacted care today? How? (Homelessness, low income, unemployed, alcoholism, drug addiction, transportatio n, low edu. Level, literacy, decrease access to med. care, group home, rehab)? @ -No Was there de-escalation of care discussed even if they declined (Discuss DNR or withdrawal of care, Hospice)? DNR status @ -No What co-morbidities impacted this encounter? (DM, HTN, Smoking, COPD, CAD, Cancer, CVA, ARF, Chemo, Hep., AIDS, mental health diagnosis, sleep apnea, morbid obesity)? @History of kidney stones Was patient admitted / discharged? Hospital course, mention meds given and route, prescriptions, significant lab abnormalities, going to OR and other pertinent info. @67-year-old male presenting with right flank pain, concern for kidney stones. CT is performed which does show multiple nonobstructing stones without hydronephrosis or hydroureter. No acute findings on CT. Urinalysis is unremarkable no signs of hematuria or infection. Patient stable for outpatient follow-up given the chronicity of his symptoms. Undiagnosed new problem with uncertain prognosis? @ -No Drug Therapy requiring intensive monitoring for toxicity (Heparin, Nitro, Insulin, Cardizem)? @ -No Were any procedures done? @ -No Diagnosis/symptom? @Flank pain Acute, or Chronic, or Acute on Chronic? @ -Chronic Uncomplicated (without systemic symptoms) or Complicated (systemic symptoms)? @ -default Side effects of treatment? @ -No Exacerbation, Progression, or Severe Exacerbation? @ -No Poses a threat to life or bodily function? How? (Chest pain, USA, AR, pneumonia, PE, COPD, DKA, ARF, appy, cholecystitis, CVA, Diverticulitis, Homicidal, Suicidal, threat to staff... and all critical care pts) @ -No - Lab Data Lab Results 12/28/22 Range/Units 07:44 Urine Color Colorless Urine Appearance Clear (Clear) Urine pH 5.5 (5.0-8.0) Ur Specific [place] 1.018 (1.001-1.035) Urine Protein Negative (Negative) Urine Glucose (UA) Negative (Negative) Urine Ketones Negative (Negative) Urine Blood Negative (Negative) Urine Nitrite Negative (Negative) Urine Bilirubin Negative (Negative) Urine Urobilinogen <2.0 (<2.0) mg/dL Ur Leukocyte Esterase Negative (Negative) Disposition Clinical Impression: Rt flank pain, Calculus of kidney Disposition: HOME SELF-CARE Condition: Good Instructions (If sedation given, give patient instructions): Flank Pain (ED), Kidney Stones (ED) Is patient prescribed a controlled substance at d/c from ED?: No Referrals: Antonino Spear DO [Primary Care Provider] - 1-2 days Time of Disposition: 08:52
[2022-12-28 07:53] LABS: Appearance,Urine Clear (Clear); Bilirubin,Urine Negative (Negative); Blood,Urine Negative (Negative); Color,Urine Colorless; Glucose,Urine (UA) Negative (Negative); Ketones,Urine Negative (Negative); Leukocyte Esterase,Urine Negative (Negative); Nitrite,Urine Negative (Negative); PH, Urine 5.5 (5.0-8.0); Protein,Urine Negative (Negative); Specific Gravity,Urine 1.018 (1.001-1.035); Urobilinogen,Urine <2.0 mg/dL (<2.0)
--- NOTE | 2022-12-28 08:16 | CT ---
EXAMINATION TYPE: CT abdomen pelvis wo con CT DLP: 1054.3 mGycm, Automated exposure control for dose reduction was used. DATE OF EXAM: 12/28/2022 8:04 AM COMPARISON: CT abdomen pelvis 05/20/2022. CLINICAL INDICATION:Male, 67 years old with history of rt flank pain; Right flank pain TECHNIQUE: Standard CT of the abdomen and pelvis without IV or oral contrast. Lack of IV or oral co ntrast limits evaluation of solid and hollow organ viscera. Coronal and sagittal reformats were perfo rmed. FINDINGS: LOWER CHEST: Minimal right lower lobe subsegmental atelectasis dependently. ABDOMEN LIVER: Multiple subcentimeter hypoattenuating structures are demonstrated throughout the liver, which are too small to accurately characterize but statistically likely to represent simple hepatic cysts. Diffusely hypoattenuating. GALLBLADDER AND BILE DUCTS: Unremarkable noncontrast appearance PANCREAS: Unremarkable noncontrast appearance SPLEEN: Punctate calcified granuloma ADRENAL GLANDS: Unremarkable noncontrast appearance. KIDNEYS AND URETERS: No evidence of hydronephrosis . Multiple nonobstructive bilateral renal calculi. No perinephric fluid collections. Left retroaortic renal vein. No ureteral calculi. Previously seen renal lesions are better appreciated on prior CT with contrast. PELVIS BLADDER: Under distended with circumferential wall thickening. REPRODUCTIVE: Coarse calcifications of the prostate gland are identified. ABDOMEN & PELVIS STOMACH AND BOWEL: Stomach and duodenum are unremarkable. Distal colonic diverticulosis without evide nce for acute diverticulitis. The appendix is within normal limits. No evidence of bowel obstruction. PERITONEUM: No evidence of pneumoperitoneum or free fluid. VASCULATURE: Mild atherosclerotic calcifications are present throughout the abdominal aorta and its b ranches. No evidence of aortic aneurysm. MUSCULOSKELETAL: No acute osseous abnormalities. Lumbar spine shows previous L3-S1 posterior fusion. There is also interbody ankylosis up to the L2 level with focal kyphotic deformity and fusion of the posterior elements up to the L2 and possibly the L1 level. Advanced hypertrophic facet arthropathy lo wer thoracic spine with at least moderate degenerative disc disease. No degenerative changes of both hips. Degenerative changes left greater than right SI joints. LYMPH NODES: No gross evidence for lymphadenopathy. SOFT TISSUE/ABDOMINAL WALL: Small right fat-containing inguinal hernia. IMPRESSION: 1. Circumferential wall thickened urinary bladder which may related to cystitis versus underdistentio n. Correlate with urinalysis. 2. Multiple nonobstructive bilateral renal calculi redemonstrated. 3. Colonic diverticulosis without evidence for acute diverticulitis. 4. Hepatic steatosis.
[2022-12-28 09:55] VITALS: BP 132/76; PULSE 78
== END 2022-12-28 09:55 | disposition home or self-care (01) ==
LOC: EC 06:56
DX: N20.0 Calculus of kidney (principal); K57.30 Diverticulosis of large intestine without perforation or abscess without bleeding; K76.0 Fatty (change of) liver, not elsewhere classified; Z87.891 Personal history of nicotine dependence
CPT/HCPCS: 81003; 74176; 99284; 96372; J1885

== ENCOUNTER → 2023-08-04 | Outpatient (CLI) | payer MEDICARE ==
--- NOTE | 2023-08-04 13:49 | US ---
EXAMINATION TYPE: US groin RT DATE OF EXAM: 08/04/2023 COMPARISON: NONE CLINICAL INDICATION: Male, 68 years old with history of R19.00 INTRA AB PELVIC SWELLING; Patient stat es right groin tenderness and swelling following hernia repair last year Right groin at patient's area of concern: 2.6 x 1.1 x 2.6cm hypoechoic area seen that appears to incr ease with valsalva IMPRESSION: Right inguinal hernia is noted which increases upon Valsalva. Hernia sac appears to cont ain only fat this time.
== END | disposition home or self-care (01) ==
LOC: RADUSWWP 12:55
PROVIDERS: ATTEND Surgery Plastic and Reconstructive Surgery
DX: K40.90 Unilateral inguinal hernia, without obstruction or gangrene, not specified as recurrent (principal)

== ENCOUNTER → 2023-11-29 | Outpatient (CLI) | payer MEDICARE ==
[2023-11-29 18:43] LABS: Prostate Specific Antigen 1.37 ng/mL (0.000-4.500)
== END | disposition home or self-care (01) ==
LOC: LABWHC1 14:42
PROVIDERS: ATTEND Family Medicine
DX: E53.8 Deficiency of other specified B group vitamins (principal); N40.0 Benign prostatic hyperplasia without lower urinary tract symptoms
CPT/HCPCS: 36415; 82607; 84153

== ENCOUNTER → 2024-03-11 | Outpatient (CLI) | payer MEDICARE ==
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
== END | disposition home or self-care (01) ==
LOC: RADCTMAIN 14:25
PROVIDERS: ATTEND Orthopaedic Surgery Orthopaedic Surgery of the Spine
DX: M51.360 Other intervertebral disc degeneration, lumbar region with discogenic back pain only (principal); M47.816 Spondylosis without myelopathy or radiculopathy, lumbar region; M43.16 Spondylolisthesis, lumbar region; M99.73 Connective tissue and disc stenosis of intervertebral foramina of lumbar region; M40.295 Other kyphosis, thoracolumbar region; R26.2 Difficulty in walking, not elsewhere classified; R26.9 Unspecified abnormalities of gait and mobility; R53.1 Weakness; Z98.1 Arthrodesis status; M21.372 Foot drop, left foot
CPT/HCPCS: 72131

== ENCOUNTER → 2024-05-13 | Outpatient (CLI) | payer MEDICARE ==
[2024-05-13 13:42] VITALS: RESP 17; TEMP 97.6
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
[2024-05-13 16:36] VITALS: BP 143/76; PULSE 64
== END ==
LOC: PNWHC3 12:49
PROVIDERS: ATTEND Specialist
DX: M96.1 Postlaminectomy syndrome, not elsewhere classified (principal); Z87.891 Personal history of nicotine dependence
CPT/HCPCS: 99211

== ENCOUNTER → 2024-07-17 | Outpatient (CLI) | payer MEDICARE ==
[2024-07-17 20:58] LABS: Calcium 9.7 mg/dL (8.7-10.3); Magnesium 1.8 mg/dL (1.5-2.4)
== END | disposition home or self-care (01) ==
LOC: LABWHC1 12:57
PROVIDERS: ATTEND Psychiatry & Neurology Neurology
DX: G58.8 Other specified mononeuropathies (principal)
CPT/HCPCS: 36415; 82306; 82310; 82607; 83036; 83735

== ENCOUNTER → 2024-10-21 | Outpatient (CLI) | payer MEDICARE ==
[2024-10-21 15:13] LABS: Basophils # (A) 0.03 X 10*3/uL (0.00-0.10); Basophils % (A) 0.5 %; Eosinophils # (A) 0.12 X 10*3/uL (0.04-0.35); Eosinophils % (A) 2.1 %; HCT 42.6 % (39.6-50.0); HGB 13.8 g/dL (13.0-17.0); Lymphocytes # (A) 1.39 X 10*3/uL (0.90-5.00); Lymphocytes % (A) 24.8 %; MCH 33.2 pg (27.0-32.0); MCHC 32.4 g/dL (32.0-37.0); MCV 102.4 FL (80.0-97.0); Monocytes # (A) 0.47 X 10*3/uL (0.20-1.00); Monocytes % (A) 8.4 %; NRBC Per 100 WBC 0 X 10*3/uL (0.00-0.01); Neutrophils # (A) 3.58 X 10*3/uL (1.80-7.70); Neutrophils % (A) 63.8 %; Platelet Count 267 X 10*3/uL (140-440); RBC 4.16 X 10*6/uL (4.40-5.60); RDW 13.2 % (11.5-14.5); WBC 5.61 X 10*3/uL (4.50-10.00)
[2024-10-21 15:38] LABS: ALT 19 U/L (10-49); AST 17 U/L (14-35); Albumin 4.1 g/dL (3.8-4.9); Albumin/Globulin Ratio 1.64 Ratio (1.60-3.17); Alkaline Phosphatase 93 U/L (41-126); Amylase 224 U/L (23-121); BUN/Creat Ratio 18.82 Ratio (12.00-20.00); Blood Urea Nitrogen 20.7 mg/dL (9.0-27.0); Calcium 9.6 mg/dL (8.7-10.3); Carbon Dioxide 19.7 mmol/L (21.6-31.8); Chloride 111 mmol/L (96-109); Chol/HDL Ratio 4.22 Ratio; Globulin 2.5 g/dL (1.6-3.3); Glucose 109 mg/dL (70-110); Lipase 143 U/L (14-60); Potassium 4.3 mmol/L (3.5-5.5); Prostate Specific Antigen 1.34 ng/mL (0.000-4.500); Sodium 141 mmol/L (135-145); Total Bilirubin 0.2 mg/dL (0.3-1.2); Total Protein 6.6 g/dL (6.2-8.2)
== END | disposition home or self-care (01) ==
LOC: LABWHC1 10:12
PROVIDERS: ATTEND Family Medicine
DX: Z00.01 Encounter for general adult medical examination with abnormal findings (principal)
CPT/HCPCS: 36415; 80053; 80061; 82150; 82306; 83690; 84153; 84443; 85025